=== PATIENT | female | born 1935 | race Caucasian/White ===

== ENCOUNTER 2018-02-16 06:59 | Day surgery (SDC) | payer MEDICARE ==
[2018-02-16] MEDS ORDERED: Sodium Chloride 0.9% 10 ML Syringe FLUSH PRN (07:30)
--- NOTE | 2018-02-17 02:34 | OR ---
DATE OF PROCEDURE: 02/16/2018 POSTOPERATIVE CARE: Postoperative care will be provided mainly at the [address] [place] [address] [facility] in conjunction with [facility]. PREOPERATIVE DIAGNOSIS: Cataract, left eye. POSTOPERATIVE DIAGNOSIS: Cataract, left eye. PROCEDURE: Phacoemulsification with intraocular lens placement, left eye. ANESTHESIA: Topical and intracameral. ESTIMATED BLOOD LOSS: Minimal. COMPLICATIONS: None. PATHOLOGY SPECIMENS: None. SURGICAL FINDINGS: None. INDICATION FOR PROCEDURE: The patient is an 82-year-old female with history of a visually significant cataract in the left eye, which interfered with activities of daily living. This consisted of a nuclear sclerosis cataract. Following careful discussion of the risks, benefits and alternatives to cataract extraction with intraocular lens placement including blindness and , the patient elected to proceed, and informed, written consent was obtained prior to the procedure. DESCRIPTION OF THE PROCEDURE: The patient was previously identified, and a missy placed above the left eye. All sources, including the patient, indicated that the left eye was the correct eye. The patient was subsequently taken to the operating room where standard monitors were applied. The patient was then prepped and draped in the usual sterile fashion for ophthalmic surgery. Attention was first directed at the 12 o'clock position where a paracentesis port was fashioned. Shugar solution followed by Viscoat was instilled into the eye. Attention was then directed to the 8:30 position where a triplanar incision was made in a near-clear manner using a keratome. A continuous capsulorrhexis was then made using a combination of the cystotome and Utrata forceps. Hydrodissection was achieved using a balanced salt solution, and the lens rotated nicely. Phacoemulsification was then done using a modified [id number] technique without complication. Phaco time was 7.53 CDE. The remaining cortex was removed using the irrigation/aspiration handpiece. Provisc was then instilled into the eye. A Technis lens, model [id number], at 20.0 diopters was then placed in the capsular bag using an Avinger injector. The remaining viscoelastic was removed using the irrigation/aspiration forceps. All wounds were then checked and found to be watertight. The lid speculum and drapes were removed. Maxitrol ointment was placed in the patient's left eye, and the eye was shielded. The patient tolerated the procedure well. The patient was instructed to follow up tomorrow. All needle and sponge counts were correct at the end of the procedure. There were no surgical findings. Bella Plasencia MD /[id number]
== END 2018-02-16 09:10 | disposition home or self-care (01) ==
LOC: JP.SDS 06:59
PROVIDERS: ATTEND Ophthalmology
DX: H25.12 Age-related nuclear cataract, left eye (principal); I10 Essential (primary) hypertension; E78.5 Hyperlipidemia, unspecified; E74.39 Other disorders of intestinal carbohydrate absorption; K21.9 Gastro-esophageal reflux disease without esophagitis; Z91.048 Other nonmedicinal substance allergy status
CPT/HCPCS: 66984; J7050; V2632

== ENCOUNTER 2021-01-27 16:49 | Emergency (ER) | payer MEDICARE ==
[2021-01-27] MEDS ORDERED: Nitroglycerin 0.4 MG Tab.SL SL ONE (17:38)
--- NOTE | 2021-01-27 17:41 | EDM.PDOC ---
ED HPI GENERAL MEDICAL PROBLEM - General Chief Complaint: Cardiovascular Problem Stated Complaint: HIGH BLOOD PRESSURE Time Seen by Provider: 01/27/21 17:33 Source of Information: Reports: Patient, Family, RN Notes Reviewed History Limitations: Reports: No Limitations - History of Present Illness INITIAL COMMENTS - FREE TEXT/NARRATIVE: 85-year-old female presents emergency department day complaint of high blood pressure, she was at [facility] on getting her flu shot today when he checked her blood pressure and found it was elevated. She does have symptoms of feeling foggy in the head not necessarily headache but no nausea vomiting shortness of breath or chest pain. She does use a wrist cuff at home has noticed her systolic blood pressure has been high for some time and 1 5160 diastolic range up to the 110s. Seen her primary care about a month ago Headache Pain Score (Numeric/FACES): 3 - Related Data Allergies Allergy/AdvReac Type Severity Reaction Status Date / Time No Known Allergies Allergy Verified 01/27/21 17:20 Home Meds: Home Meds Lisinopril 40 mg PO DAILY 02/13/18 [History] Calcium Carb/Vitamin D3/Vit K1 [Calcium + D Soft Chewable Tab] 2 each PO DAILY 12/05/19 [History] Cholecalciferol (Vitamin D3) [Vitamin D] 5,000 unit PO DAILY 12/05/19 [History] HCTZ/Triamterene [Dyazide 25-37.5 MG] 1 cap PO DAILY #30 cap 01/27/21 [Rx] Past Medical History HEENT History: Reports: Cataract Cardiovascular History: Reports: Hypertension Gastrointestinal History: Reports: GERD DIRECT[employer] 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 Hx of fracture in right foot. Lumbago Psychiatric History: Reports: Anxiety, Depression Hematologic History: Reports: Anemia, Blood Transfusion(s) - Infectious Disease History Infectious Disease History: Reports: Chicken Pox, Measles, Mumps - Past Surgical History Head Surgeries/Procedures: Reports: None Cardiovascular Surgical History: Reports: None GI Surgical History: Reports: Colonoscopy Musculoskeletal Surgical History: Reports: Hip Replacement Other Musculoskeletal Surgeries/Procedures:: Right and Left hip Social & Family History - Tobacco Use Tobacco Use Status *Q: Never Tobacco User - Caffeine Use Caffeine Use: Reports: Coffee, Soda, Tea - Recreational Drug Use Recreational Drug Use: No ED ROS GENERAL - Review of Systems Review Of Systems: See Below Constitutional: Reports: No Symptoms HEENT: Reports: No Symptoms Respiratory: Reports: No Symptoms Cardiovascular: Reports: Blood Pressure Problem GI/Abdominal: Reports: No Symptoms Neurological: Reports: Other (Fogginess) ED EXAM, GENERAL - Physical Exam Exam: See Below Exam Limited By: No Limitations General Appearance: Alert, WD/WN, No Apparent Distress Respiratory/Chest: No Respiratory Distress, Lungs Clear, Normal Breath Sounds, No Accessory Muscle Use, Chest Non-Tender Cardiovascular: Regular Rate, Rhythm, Systolic Murmur GI/Abdominal: Soft, Non-Tender Course - Vital Signs Last Recorded V/S: Last Vital Signs Temp 97.6 F 01/27/21 17:16 Pulse 90 01/27/21 17:50 Resp 16 01/27/21 17:16 BP 164/83 H 01/27/21 18:03 Pulse Ox 94 L 01/27/21 17:48 - Orders/Labs/Meds Labs: Laboratory Tests 01/27/21 01/27/21 Range/Units 17:44 17:44 WBC 6.8 (4.5-11.0) K/uL RBC 4.67 (3.30-5.50) M/uL Hgb 13.6 (12.0-15.0) g/dL Hct 41.8 (36.0-48.0) % MCV 90 (80-98) fL MCH 29 (27-31) pg MCHC 33 (32-36) % Plt Count 215 (150-400) K/uL Neut % (Auto) 44.8 (36-66) % Lymph % (Auto) 33.4 (24-44) % [place] % (Auto) 16.8 H (2-6) % Eos % (Auto) 4.0 (2-4) % Baso % (Auto) 1.0 (0-1) % Sodium 133 L (140-148) mmol/L Potassium 4.3 (3.6-5.2) mmol/L Chloride 98 L (100-108) mmol/L Carbon Dioxide 26 (21-32) mmol/L Anion Gap 13.3 (5.0-14.0) mmol/L BUN 12 (7-18) mg/dL Creatinine 0.9 (0.6-1.0) mg/dL Est Cr Clr Drug Dosing 40.90 mL/min Estimated GFR (MDRD) 60 (>60) Glucose 99 (74-106) mg/dL Calcium 9.7 (8.5-10.1) mg/dL Meds: Medications Discontinued Medications Generic Name Dose Route Start Last Admin Trade Name Quinton PRN Reason Stop Dose Admin Nitroglycerin 0.4 mg 01/27/21 17:38 01/27/21 17:48 Nitroglycerin 0.4 Mg Tab.Sl SL 01/27/21 17:39 0.4 mg ONETIME ONE Administration Departure - Departure Time of Disposition: 18:23 Disposition: Home, Self-Care 01 Condition: Fair Clinical Impression: Hypertensive urgency Prescriptions: HCTZ/Triamterene [Dyazide 25-37.5 MG] 1 cap PO DAILY #30 cap Instructions: Hypertension, Adult, [place] Referrals: Orly Vela DO [Primary Care Provider] - Forms: ED Department Discharge Additional Instructions: Start your hydrochlorothiazide tomorrow, your medication has been faxed to [facility] please follow-up with your primary care in the next 3 to 5 days for reevaluation call return to the emergency department worsening of symptoms Sepsis Event Note (ED) - Focused Exam Vital Signs: Vital Signs Temp Pulse Resp BP BP Pulse Ox 01/27/21 18:03 164/83 H 01/27/21 17:50 90 171/90 H 01/27/21 17:48 87 178/86 H 178/86 H 94 L 01/27/21 17:45 90 178/86 H 01/27/21 17:16 97.6 F 91 16 207/122 H 96 - Assessment/Plan Plan: Assessment Acuity = acute Site and laterality = hypertensive urgency Etiology = unknown Manifestations = fogginess now improved Location of injury = Home Lab values = CBC BMP unremarkable Plan She had good response to the nitro provided in the emergency department elected to proceed with adding hydrochlorothiazide she will start this medication tomorrow and then follow-up with her primary care in a couple of days for reevaluation medications faxed to [email or web address] This note was dictated using Grabbit recognition software please call with any questions on syntax or grammar.
== END 2021-01-27 18:36 | disposition home or self-care (01) ==
LOC: JP.ED 16:49
DX: I16.0 Hypertensive urgency (principal); Z79.899 Other long term (current) drug therapy
CPT/HCPCS: 36415; 80048; 85025; 99283; A9270